=== PATIENT | female | born 1960 | race Caucasian/White ===

== ENCOUNTER → 2023-10-14 09:48 | Outpatient (REF) | payer MEDICARE, OTHER, SELFPAY | LOC: HWRAD 09:48 | PROVIDERS: ATTENDING PHYSICIAN Nurse Practitioner Family | DX: R68.89 Other general symptoms and signs (principal) | CPT/HCPCS: 71046 ==

== ENCOUNTER → 2024-11-22 09:26 | Outpatient (REF) | payer OTHER, SELFPAY | LOC: HWRAD 09:26 | PROVIDERS: ATTENDING PHYSICIAN Physician Assistant Medical; FAMILY PHYSICIAN Family Medicine | DX: G44.209 Tension-type headache, unspecified, not intractable (principal); M54.2 Cervicalgia; Z85.820 Personal history of malignant melanoma of skin | CPT/HCPCS: 72125 ==

== ENCOUNTER → 2024-12-02 07:02 | Outpatient (REF) | payer OTHER, SELFPAY | LOC: HWWDC 07:02 | PROVIDERS: ATTENDING PHYSICIAN Physician Assistant Medical | DX: Z12.31 Encounter for screening mammogram for malignant neoplasm of breast (principal) | CPT/HCPCS: 77063; 77067 ==

== ENCOUNTER → 2025-05-12 11:31 | Outpatient (REF) | payer OTHER, SELFPAY | LOC: HWRAD 11:31 | PROVIDERS: ATTENDING PHYSICIAN Nurse Practitioner Family; FAMILY PHYSICIAN Family Medicine | DX: C43.9 Malignant melanoma of skin, unspecified (principal) | CPT/HCPCS: 71046 ==